=== PATIENT | male | born 1935 | race Caucasian/White ===

== ENCOUNTER 2016-09-16 17:21 | Emergency (ER) | payer MEDICARE, BC ==
[~2016-09-16] VITALS: Ht 175.3 cm; Wt 77.3 kg
[~2016-09-16 17:21] MED LIST: ASPIRIN E.C. 8181 MG PO; B-121000 MCG PO; CARDIZEM CD 18180 MG PO; CARDURA 2MG2 MG PO; CARTIA XT180 MG PO; CENTRUM SILVER1 TA1 PO; CLEOCIN HCL300 MG PO; COLACE50 MG PO; CORDARONE200 MG/TAB PO; COUMADIN 2MG2 MG/TAB PO; COUMADIN 3MG3 MG/TAB PO; COUMADIN5 MG PO; LEVOTHYROXINE0.1 MG PO; MIRALAX PA17 GM/Dose PO; MULTI VITAMINS1 TAB PO; PACERONE200 MG PO; PRINIVIL2.5 MG PO; PROPAFENONE PO; RYTHMOL150 MG PO; SYNTHROID0.1 MG/TAB PO; SYNTHROID0.112 MG/T PO; TIROSINT112 MC1 PO; TOPCARE ASPIRI325 MG PO; ULTRAM 50MG TAB50 MG PO; VITAMIN B12100 MCG PO; WARFARIN SODIUM3 MG PO; XANAX .25M0.25 MG/TA PO; XANAX0.5 MG PO
[2016-09-16 17:22] VITALS: TEMP 98.3
[2016-09-16 17:59] VITALS: BP 131/84; PULSE 74
== END 2016-09-16 18:05 | disposition home or self-care (01) ==
LOC: COL.ER 17:21
DX: S00.03XA Contusion of scalp, initial encounter (principal); Z79.01 Long term (current) use of anticoagulants; W22.8XXA Striking against or struck by other objects, initial encounter

== ENCOUNTER 2017-10-29 23:15 | Inpatient (IN) | payer MEDICARE, BC ==
[~2017-10-29] VITALS: Ht 175.3 cm; Wt 81.0 kg
[2017-10-29 23:51] LABS: HEMATOCRIT 44.1 % (42.0-52.0); HEMOGLOBIN 15.3 g/dl (13.5-18.0); MEAN CELL VOLUME 91 fl (80.0-100.0); MEAN CORPUSCULAR HEMOGLOBIN 32 pg (27.0-31.0); MEAN CORPUSCULAR HGB CONC 35 g/dl (33.0-37.0); MEAN PLATELET VOLUME 10.1 fl (7.4-10.4); PLATELET COUNT 142 K/mm3 (130-400); RED BLOOD COUNT 4.84 M/mm3 (4.20-5.60); REDCELL DISTRIBUTION WIDTH-CV 12.8 % (11.5-14.5)
[2017-10-29 23:55] LABS: INR 2.7 (0.8-3.0); PROTHROMBIN TIME 32.3 SECONDS (9.7-12.8)
[2017-10-30 00:01] LABS: ALBUMIN 3.8 gm/dL (3.5-5.0); BILIRUBIN,TOTAL 1.2 mg/dL (0.0-1.0); CALCIUM 8.7 mg/dL (8.4-10.2); CREATININE, serum 0.98 mg/dL (0.66-1.25); POTASSIUM 3.8 mmol/L (3.4-5.0); TOTAL PROTEIN 7.2 gm/dL (6.4-8.2)
[2017-10-30 00:02] LABS: BAND 18 % (0-10); EOSINOPHIL 1 % (0-4); LYMPHOCYTE 8 % (20.0-51.0); NEUTROPHILS 71 % (42.0-75.2); PLATELET ESTIMATE NORMAL (NORMAL)
[2017-10-30 00:12] LABS: C-REACTIVE PROTEIN 22.6 mg/dL (0.0-0.9)
[2017-10-30 01:38] LABS: COLLECTION METHOD CLEAN CATCH
[2017-10-30 01:44] LABS: MUCOUS Present /lpf; PH 6 (5-8); SQUAMOUS EPITHELIAL None Seen /hpf; URINE APPEARANCE Clear; URINE BACTERIA None Seen /hpf; URINE BILIRUBIN Negative (NEGATIVE); URINE BLOOD 1+ (NEGATIVE); URINE COLOR Yellow; URINE GLUCOSE Negative (NEGATIVE); URINE KETONE 1+ (NEGATIVE); URINE LEUKOCYTE ESTERASE Negative (NEGATIVE); URINE NITRATE Negative (NEGATIVE); URINE PROTEIN(semi-quant) 1+ (NEGATIVE); URINE UROBILINOGEN >=4.0 mg/dL (NEGATIVE)
[2017-10-30 03:17] VITALS: BP 122/59; PULSE 81; TEMP 97.7
[2017-10-30] MEDS ORDERED: TYLENOL 500MG500 MG PO (03:49)
[2017-10-30] MEDS ORDERED: PACERONE100 MG PO (03:50)
[2017-10-30] MEDS ORDERED: COUMADIN 1MG1 MG/TAB PO (06:05)
[2017-10-30] MEDS ORDERED: BETAMETHASONE D15 G1 TP (06:07)
[2017-10-30 09:06] VITALS: BP 115/51; PULSE 77; TEMP 98.5
[2017-10-30 11:56] LABS: INR 1.9 (0.8-3.0); PROTHROMBIN TIME 22.3 SECONDS (9.7-12.8)
[2017-10-30 13:29] VITALS: BP 105/52; PULSE 76; TEMP 98.7
[2017-10-30 17:11] VITALS: BP 104/45; PULSE 66; TEMP 98.7
[2017-10-30 19:10] LABS: INR 1.6 (0.8-3.0); PROTHROMBIN TIME 18.1 SECONDS (9.7-12.8)
[2017-10-30 22:00] VITALS: BP 118/56; PULSE 70; TEMP 99.1
[2017-10-31] VITALS (13 sets, daily range): BP systolic 97–125; BP diastolic 40–68; PULSE 64–76; TEMP 97.3–98.8
[2017-10-31 06:54] LABS: BASO % 0.1 % (0.0-2.0); EOS % 0.2 % (0-4.0); GRAN # 7.6 (1.4-6.5); GRAN % 82.5 % (42.2-75.2); HEMATOCRIT 36.8 % (42.0-52.0); HEMOGLOBIN 12.5 g/dl (13.5-18.0); LYMPH # 0.6 (1.2-3.4); LYMPH % 6.3 % (20.0-51.0); MEAN CELL VOLUME 94 fl (80.0-100.0); MEAN CORPUSCULAR HEMOGLOBIN 32 pg (27.0-31.0); MEAN CORPUSCULAR HGB CONC 34 g/dl (33.0-37.0); MEAN PLATELET VOLUME 10.4 fl (7.4-10.4); MONO # 0.9 (0.1-0.6); MONO % 10.2 % (1.7-9.3); PLATELET COUNT 121 K/mm3 (130-400); RED BLOOD COUNT 3.91 M/mm3 (4.20-5.60); REDCELL DISTRIBUTION WIDTH-CV 13.3 % (11.5-14.5)
[2017-10-31 06:58] LABS: INR 1.4 (0.8-3.0); PROTHROMBIN TIME 15.7 SECONDS (9.7-12.8)
[2017-10-31 07:10] LABS: ALBUMIN 2.6 gm/dL (3.5-5.0); BILIRUBIN,TOTAL 0.7 mg/dL (0.0-1.0); CALCIUM 7.7 mg/dL (8.4-10.2); CREATININE, serum 0.94 mg/dL (0.66-1.25); POTASSIUM 3.7 mmol/L (3.4-5.0); TOTAL PROTEIN 5.4 gm/dL (6.4-8.2)
[2017-11-01 02:00] VITALS: BP 120/63; PULSE 65; TEMP 97.6
[2017-11-01 05:27] VITALS: BP 138/74; PULSE 63; TEMP 97.3
[2017-11-01 06:33] LABS: BASO % 0.2 % (0.0-2.0); GRAN # 10.3 (1.4-6.5); GRAN % 89.3 % (42.2-75.2); HEMOGLOBIN 12.5 g/dl (13.5-18.0); LYMPH # 0.4 (1.2-3.4); LYMPH % 3.4 % (20.0-51.0); MEAN CELL VOLUME 92 fl (80.0-100.0); MEAN CORPUSCULAR HEMOGLOBIN 32 pg (27.0-31.0); MEAN CORPUSCULAR HGB CONC 35 g/dl (33.0-37.0); MEAN PLATELET VOLUME 10.7 fl (7.4-10.4); MONO # 0.8 (0.1-0.6); MONO % 6.6 % (1.7-9.3); PLATELET COUNT 141 K/mm3 (130-400); RED BLOOD COUNT 3.95 M/mm3 (4.20-5.60); REDCELL DISTRIBUTION WIDTH-CV 13.3 % (11.5-14.5)
[2017-11-01 06:45] LABS: INR 1.2 (0.8-3.0); PROTHROMBIN TIME 14.1 SECONDS (9.7-12.8)
[2017-11-01 06:56] LABS: ALBUMIN 2.8 gm/dL (3.5-5.0); BILIRUBIN,TOTAL 0.5 mg/dL (0.0-1.0); CALCIUM 7.9 mg/dL (8.4-10.2); CREATININE, serum 0.85 mg/dL (0.66-1.25); POTASSIUM 3.8 mmol/L (3.4-5.0); TOTAL PROTEIN 5.8 gm/dL (6.4-8.2)
[2017-11-01 06:57] LABS: HEMATOCRIT 36.2 % (42.0-52.0)
[2017-11-01 09:11] VITALS: BP 120/53; PULSE 76; TEMP 97.8
[2017-11-01 13:22] VITALS: BP 117/56; BP 17/56; PULSE 73; TEMP 97.4
[2017-11-01 18:40] VITALS: BP 120/60; PULSE 72; TEMP 97.2
[2017-11-01 21:48] VITALS: BP 119/58; PULSE 67; TEMP 98.1
[2017-11-02 02:21] VITALS: BP 135/69; PULSE 86; TEMP 98.6
[2017-11-02 05:02] VITALS: BP 144/76; PULSE 85; TEMP 98.8
[2017-11-02 07:13] VITALS: BP 141/79; PULSE 61; TEMP 97.7
[2017-11-02 09:54] VITALS: BP 137/57; PULSE 65; TEMP 97.6
[2017-11-02 13:01] VITALS: BP 112/66; PULSE 60; TEMP 98.6
== END 2017-11-02 13:20 | disposition home or self-care (01) | DRG 418 ==
LOC: COL.ER 23:15 → SURG 10-30 02:32
PROVIDERS: Emergency Medicine; Orthopaedic Surgery; Surgery
PROC: BF131ZZ Fluoroscopy of Gallbladder and Bile Ducts using Low Osmolar Contrast (ICD-10-PCS; 2017-10-31)
PROC: 0FT44ZZ Resection of Gallbladder, Percutaneous Endoscopic Approach (ICD-10-PCS; principal; 2017-10-31 14:00)
DX: K80.00 Calculus of gallbladder with acute cholecystitis without obstruction (principal); J90 Pleural effusion, not elsewhere classified; J98.11 Atelectasis; I10 Essential (primary) hypertension; I48.91 Unspecified atrial fibrillation; Z79.01 Long term (current) use of anticoagulants
CPT/HCPCS: A9284; J1100; J1956; J2175; J2270; J2405; J2704; J2710; J3010; J7030; J7120; Q9967

== ENCOUNTER → 2021-10-31 | Outpatient (CLI) | payer MEDICARE, BC ==
[~2021-10-31] MED LIST changes: +BETAMETHASONE D15 G1 TP; +COUMADIN 1MG1 MG/TAB PO; +PACERONE100 MG PO; +TYLENOL 500MG500 MG PO
[2021-10-31 09:12] LABS: CALCIUM 9.2 mg/dL (8.4-10.2); CREATININE, serum 1.13 mg/dL (0.72-1.25); POTASSIUM 4.7 mmol/L (3.5-4.5)
== END ==
LOC: COL.RAD 10-27 13:00 → COL.LAB 10-27 13:00
PROVIDERS: Internal Medicine Cardiovascular Disease
DX: I71.2 Thoracic aortic aneurysm, without rupture (principal); J98.4 Other disorders of lung
CPT/HCPCS: Q9967